=== PATIENT | female | born 1935 | race Two or more races ===

== ENCOUNTER 2025-02-20 19:12 | Emergency (ER) | payer OTHER ==
[~2025-02-20] VITALS: Ht 157.5 cm; Wt 63.5 kg
[~2025-02-20 19:12] MED LIST: COUMADIN3 MG PO; SIMBASTATIN; SYNTHROID100 MCG PO; ZOCOR40 MG
[2025-02-20] MEDS ORDERED: COZAAR25 MG PO (19:47)
[2025-02-20] MEDS ORDERED: PLAVIX75 MG (19:47)
[2025-02-20] MEDS ORDERED: MOBIC7.5 MG PO (19:48)
[2025-02-20] MEDS ORDERED: NEURONTIN600 M1 PO (19:48)
[2025-02-20 20:27] LABS: HEMATOCRIT 31.8 % (36.0-45.00); HEMOGLOBIN 10.4 g/dL (12.0-15.00); MEAN CORPUSCULAR HEMOGLOBIN 31.8 pg (27.00-32.0); MEAN CORPUSCULAR HGB CONC 32.8 g/dl (32.0-36.0); PLATELET COUNT 294 K/uL (150-450); RED BLOOD COUNT 3.28 M/uL (4.00-6.00); RED CELL DISTRIBUTION WIDTH 13.4 % (11.5-14.5)
[2025-02-20 20:53] LABS: ALBUMIN 3.5 gm/dL (3.4-5.0); BILIRUBIN TOTAL 0.17 mg/dL (0.3-1.2); CALCIUM 9.4 mg/dL (8.5-10.1); CREATININE SERUM 0.89 mg/dL (0.55-1.02); GFR 59.86; GLOBULINA 4.8 G/DL (2.4-3.5); POTASSIUM 4.68 mEq/L (3.5-5.1); TOTAL PROTEIN 8.3 gm/dL (6.4-8.2)
[2025-02-20] MEDS ORDERED: MECLIZINE HCL25 MG PO (21:47)
== END 2025-02-20 21:58 | disposition home or self-care (01) ==
LOC: ER 19:14
PROVIDERS: General Practice
DX: R42 Dizziness and giddiness (principal); Z88.8 Allergy status to other drugs, medicaments and biological substances